=== PATIENT | male | born 1965 | race Caucasian/White ===

== ENCOUNTER → 2018-10-02 | Outpatient (CLI) | payer BC ==
--- NOTE | 2018-10-03 12:36 | XR ---
Left shoulder HISTORY: Trauma and pain 3 views of the left shoulder No comparisons Acromioclavicular joint arthropathy is present. Bone mineralization and alignment are maintained. Lef t lung apex as visualized is normal. IMPRESSION: No fracture or dislocation. Shoulder MRI may be of benefit.
== END ==
LOC: RADXRYALE 16:40
PROVIDERS: ATTEND Physician Assistant Medical
DX: S49.92XA Unspecified injury of left shoulder and upper arm, initial encounter (principal)

== ENCOUNTER → 2020-12-06 | Outpatient (CLI) | payer OTHER ==
--- NOTE | 2020-12-06 12:14 | XR ---
EXAMINATION TYPE: XR shoulder complete LT DATE OF EXAM: 12/06/2020 CLINICAL HISTORY: Patient slipped and fell at work today. Patient complains of pain to left shoulder and difficulty lifting arm TECHNIQUE: Three views of the left shoulder are obtained. COMPARISON: 10/02/2018 FINDINGS: There is no acute fracture/dislocation evident in the left shoulder. There is degenerative narrowing of the acromioclavicular joint with subchondral sclerosis. Visualized portions of the left lung appear clear. There is chronic narrowing of the acromiohumeral joint space which was also seen on a prior exam dated 2018. This may represent a rotator cuff tear. IMPRESSION: 1. No evidence of acute fracture or dislocation of the left shoulder. 2. Degenerative changes of left acromioclavicular joint. 3. Narrowing of the left acromiohumeral space may represent a chronic rotator cuff tear. Clinical cor relation is recommended. MRI could be obtained if clinically indicated. This was also seen on a prior exam dated 10/02/2018.
== END | disposition home or self-care (01) ==
LOC: RADXRMAIN 10:21
PROVIDERS: ATTEND Emergency Medicine
DX: S40.012A Contusion of left shoulder, initial encounter (principal); M19.012 Primary osteoarthritis, left shoulder; W01.0XXA Fall on same level from slipping, tripping and stumbling without subsequent striking against object, initial encounter; Y99.0 Civilian activity done for income or pay

== ENCOUNTER → 2021-01-16 | Outpatient (CLI) | payer OTHER ==
[2021-01-16 12:25] LABS: Basophils # (A) 0.1 k/uL (0-0.2); Basophils % (A) 1 %; Eosinophils # (A) 0.4 k/uL (0-0.7); Eosinophils % (A) 5 %; HCT 43.7 % (39.0-53.0); HGB 14.6 gm/dL (13.0-17.5); Lymphocytes % (A) 27 %; MCH 31.9 pg (25.0-35.0); MCHC 33.5 g/dL (31.0-37.0); MCV 95.2 fL (80.0-100.0); Mean Platelet Volume 6.2; Monocytes # (A) 0.4 k/uL (0-1.0); Monocytes % (A) 6 %; Neutrophils # (A) 4.3 k/uL (1.3-7.7); Neutrophils % (A) 59 %; Platelet Count 382 k/uL (150-450); RBC 4.59 m/uL (4.30-5.90); RDW 13.7 % (11.5-15.5); WBC 7.4 k/uL (3.8-10.6)
[2021-01-16 13:00] LABS: Potassium 4.5 mmol/L (3.5-5.1)
== END | disposition home or self-care (01) ==
LOC: LABPAT 11:30
PROVIDERS: ATTEND Orthopaedic Surgery
DX: Z01.812 Encounter for preprocedural laboratory examination (principal); Z01.810 Encounter for preprocedural cardiovascular examination; M75.42 Impingement syndrome of left shoulder
CPT/HCPCS: 36415; 80051; 85025; 93005

== ENCOUNTER 2021-01-25 05:56 | Day surgery (SDC) | payer BC, OTHER ==
[2021-01-23 08:42] VITALS: BMI 26.6
--- NOTE | 2021-01-24 21:14 | HP ---
HISTORY AND PHYSICAL REASON FOR ADMISSION: Surgery scheduled for 01/25/2021 HISTORY OF PRESENT ILLNESS: Anthony Deras is a 55-year-old gentleman seen with progressive left shoulder pain. We discussed options for treatment. He elected to proceed with arthroscopy. Consent was obtained. PAST MEDICAL HISTORY: Asthma. PAST SURGICAL HISTORY: Shoulder surgery, hip surgery. MEDICATIONS: Meloxicam, tramadol. ALLERGIES: None. SOCIAL HISTORY: Denies tobacco use. PHYSICAL EVALUATION OF THE LEFT SHOULDER: Flexion 60, abduction 50, external rotation 20 with significant weakness, tenderness along the anterolateral acromion rotator cuff insertion site. Impingement positive at 80. Drop-arm sign positive. Cross adduction sign is positive. Distal neurovascular exam is intact. RADIOGRAPHS: Radiographs of the left shoulder revealed a type 2 acromion, evidence for acromioclavicular joint osteoarthritis. MRI left shoulder revealed a rotator cuff tendon tear. IMPRESSION: 1. Left shoulder impingement with rotator cuff tear. 2. Left shoulder acromioclavicular joint osteoarthritis. PLAN: Left shoulder arthroscopy with subacromial decompression, arthroscopic rotator cuff repair, Lacie procedure and debridement. Surgery scheduled for 01/25/2021. MMODL / IJN: [id number] /
[~2021-01-25 05:56] MED LIST: DEXAMETHASONE SOD PHOSPHATE 4 MG/ML 1 ML VIAL IV ONE; LACTATED RINGERS 1,000 ML IV SCH; MIDAZOLAM 2 MG/2 ML VIAL IV PRN; ONDANSETRON 4 MG/2 ML VIAL IVP ONE; SCOPOLAMINE 1.5MG/72HR PATCH TRANSDERM ONE
[2021-01-25] MEDS ORDERED: LIDOCAINE 1% (10MG/ML) FOR IV START INTRADERMA ONE (06:30)
[2021-01-25 06:39] VITALS: RESP 16
[2021-01-25] MEDS ORDERED: PROPOFOL 10 MG/ML 20 ML VIAL IV ONE (07:26)
[2021-01-25] MEDS ORDERED: LIDOCAINE 1% INJ 10MG/ML (20 ML MDV) ONE (07:26)
[2021-01-25] MEDS ORDERED: ROPIVACAINE 5 MG/ML 30 ML VIAL ONE (07:26)
[2021-01-25] MEDS ORDERED: MIDAZOLAM 2 MG/2 ML VIAL ONE (07:26)
[2021-01-25] MEDS ORDERED: SUCCINYLCHOLINE CHLORIDE 100 MG/5 ML SYR IV ONE (07:26)
[2021-01-25] MEDS ORDERED: fentaNYL (PF) 50 MCG/ML 2 ML AMP ONE (07:26)
--- NOTE | 2021-01-25 08:21 | P.ANPRN ---
Procedure Note - Anesthesia - Nerve Block Performed Left Interscalene Single Time Out Performed: Yes ([id number]) Date of Procedure: 01/25/21 Procedure Start Time: 06:41 Procedure Stop Time: 06:46 Location of Patient: PreOp Indication: Acute Post-Operative Pain, Requested by Surgeon Specifically requested for management of pain by DrTianna: Dre Kennedy Sedation Type: Sedate with meaningful contact maintained Preparation: Sterile Prep Position: Supine Catheter: None Needle Types: Pajunk Needle Gauge: 21 Ultrasound used to visualize needle placement: Yes Ultrasound used to observe medication spread: Yes Injectate: 0.5% Ropivacaine (see comment for volume) (30cc) Blood Aspirated: No Pain Paresthesia on Injection Noted: No Resistance on Injection: Normal Image Stored and Saved: Yes Events: Uneventful and Well Tolerated
--- NOTE | 2021-01-25 09:42 | P.OP ---
Date of Procedure: 01/25/21 Preoperative Diagnosis: Left shoulder impingement Postoperative Diagnosis: 1. Left shoulder large retracted rotator cuff tendon tear 2. Left shoulder impingement 3. Left shoulder acromioclavicular joint osteoarthritis Procedure(s) Performed: 1. Left shoulder arthroscopic rotator cuff repair 2. Left shoulder arthroscopic subacromial decompression 3. Left shoulder arthroscopic Lacie procedure Implants: 4Arthrex 4.75 swivel lock anchors Anesthesia: GETA, regional (Interscalene block) Surgeon: Dre Kennedy Banquet Set Up Person #1: Gianfranco Bryan Estimated Blood Loss (ml): 7 Pathology: none sent Condition: stable Disposition: PACU Indications for Procedure: 55-year-old patient seen with aggressive left shoulder pain, after treatment options were discussed he elected to proceed with arthroscopy. Operative Findings: See description of procedure Description of Procedure: Patient underwent an interscalene block by department of anesthesia. The patient was then taken to the operative suite. The patient underwent a general anesthetic by the department of anesthesia. The patient was placed into a lateral position and secured. There was appropriate padding of the bony prominence. Left shoulder was then prepped and draped in normal sterile orthopedic fashion. We placed the extremity in 10 pounds of longitudinal traction. A posterior incision was now made for a posterior working portal site. The trocar and cannula were inserted into the glenohumeral joint. Arthroscopy was initiated. Spinal needle was now inserted anteriorly, to ascertain the anterior working portal site. An incision was now made in that area, a trocar was inserted followed by a probe. The biceps tendon was absent. There was some superficial fraying of the superior labrum. There was an obvious large rotator cuff tear clearly visualized from glenohumeral joint. I introduced a motorized shaver and debrided out the superficial labral tear. Residual labrum was stable. Instruments were now removed from subacromial space. Utilizing the posterior working portal site, the trocar and cannula were inserted into the subacromial space. Arthroscopy initiated. I made an incision 2 fingerbreadths lateral to the acromion. I introduced my trocar followed by my ArthroCare ablator. I now began ablating thick subacromial bursal tissue, which exposed the undersurface of the anterior acromion. There was diminished subacromial space. There was a very prominent anterior acromion. A motorized bur was introduced and a subacromial decompression was performed. I also excised some osteophytes off the inferior aspect of the distal clavicle. The AC joint was visualized and noted to be fairly arthritic. The motorized bur was introduced in the anterior portal site and a Lacie procedure was performed without difficulty, decompressing the AC joint nicely. I turned my attention to the rotator cuff. There was a 3.5 cm rotator cuff tear. It was retracted approximately 23 centimeters. I performed a substantial release proximally. I debrided the margins getting down to stable tendon tissue. I now could pull it over the footprint. I introduced my motorized bur and abraded the footprint area, getting some petechial bleeding. I now made an accessory portal site off the lateral aspect of the acromion. I punched 2 holes medial for medial row fixation with the assistance of Jose Elias RAMIREZ carefully tapping the punch with a mallet as I held the punch and the camera. I now introduced both anchors into the pre-punched holes and Jose Elias RAMIREZ tapped them with the mallet as I held anchors and the camera. Jose Elias RAMIREZ now screwed the anchors in place a while I held the anchor guide and camera. All 8 limbs of suture were now passed through good bites of rotator cuff tendon. I now punched 2 holes for lateral row fixation again I held the punch and camera while Jose Elias RAMIREZ used a mallet to tap in the punch. We now passed sutures through both anchors and individually I introduced the anchors into the pre-punch holes I held the anchor guide in position with one hand holding the camera with the other hand while Jose Elias RAMIREZ tensioned the sutures and screwed in the anchors one at a time. All residual suture limbs were now clipped. We had good compression of the tendon along the entire footprint. Instruments now removed from the portal sites. All portal sites were approximated with nylon suture. Sterile dressings were applied followed by a shoulder immobilizer. Gianfranco RAMIREZ assisted in this complex case. The patient was awakened, transferred to a bed, and taken to recovery in stable condition.
[2021-01-25 09:43] VITALS: TEMP 97.6
[2021-01-25] MEDS: HYDROmorphone 0.5 MG/0.5 ML SYRINGE IVP PRN ×3 (10:03→10:32)
[2021-01-25] MEDS ORDERED: LACTATED RINGERS 1,000 ML IV ONE (10:29)
[2021-01-25] MEDS ORDERED: HYDROcodone/APAP 7.5-325MG 1 EACH TAB ONE (11:13)
[2021-01-25] MEDS ORDERED: HYDROcodone/APAP 7.5-325MG 1 EACH TAB PO ONE (11:14)
[2021-01-25 11:36] VITALS: BP 102/68; PULSE 62
== END 2021-01-25 12:03 | disposition home or self-care (01) ==
LOC: OR 05:56
PROVIDERS: ATTEND Orthopaedic Surgery
DX: M75.102 Unspecified rotator cuff tear or rupture of left shoulder, not specified as traumatic (principal); M19.012 Primary osteoarthritis, left shoulder
CPT/HCPCS: 64415; 76942; 29827; 29826; C1894; J2250; J1100; J0690; J2405; J2001; J3010; J2795; J0330; J2704; J1170

== ENCOUNTER → 2021-08-17 | Outpatient (CLI) | payer OTHER ==
[2021-08-17 18:14] LABS: Basophils # (A) 0.04 X 10*3/uL (0.00-0.10); Basophils % (A) 0.5 %; Eosinophils % (A) 3.8 %; Immature Grans, Automated 0.4 %; Lymphocytes # (A) 1.78 X 10*3/uL (0.90-5.00); Lymphocytes % (A) 22.4 %; MCH 30.4 pg (27.0-32.0); MCHC 31.8 g/dL (32.0-37.0); MCV 95.7 fL (80.0-97.0); Mean Platelet Volume 8.8 fL (9.5-12.2); Monocytes # (A) 0.55 X 10*3/uL (0.20-1.00); Monocytes % (A) 6.9 %; NRBC Per 100 WBC 0 /100 WBCS (0.0-0.0); Neutrophils # (A) 5.24 X 10*3/uL (1.80-7.70); Platelet Count 311 X 10*3/uL (140-440); RDW 13.1 % (11.5-14.5); WBC 7.94 X 10*3/uL (4.50-10.00)
[2021-08-17 18:40] LABS: Anion Gap 11.7 mmol/L (10.00-18.00); Carbon Dioxide 24.3 mmol/L (20.0-27.5); Potassium 4.7 mmol/L (3.5-5.5)
== END | disposition home or self-care (01) ==
LOC: LABPAT 11:11
PROVIDERS: ATTEND Orthopaedic Surgery
DX: Z01.812 Encounter for preprocedural laboratory examination (principal); S46.011A Strain of muscle(s) and tendon(s) of the rotator cuff of right shoulder, initial encounter; X58.XXXA Exposure to other specified factors, initial encounter
CPT/HCPCS: 80051; 85025

== ENCOUNTER 2021-08-20 08:22 | Day surgery (SDC) | payer OTHER ==
[2021-08-17 08:54] VITALS: BMI 25.8
--- NOTE | 2021-08-19 13:21 | HP ---
HISTORY AND PHYSICAL REASON FOR ADMISSION: Surgery 08/20/2021 HISTORY OF PRESENT ILLNESS: Anthony Deras is a 55-year-old gentleman seen with progressive left shoulder pain. We discussed options for treatment. He elected to proceed with left shoulder arthroscopy. Consent obtained. PAST MEDICAL HISTORY: Asthma. PAST SURGICAL HISTORY: Shoulder arthroscopy, hip arthroscopy. MEDICATIONS: Meloxicam, ibuprofen. ALLERGIES: None. SOCIAL HISTORY: He denies tobacco use. PHYSICAL EVALUATION OF THE LEFT SHOULDER: Flexion is 110, abduction is 100, external rotation 20 with significant weakness, tenderness along the anterior lateral acromion and rotator cuff insertion site. Impingement positive at 90 degrees. Drop-arm sign is positive. Distal neurovascular exam is intact. RADIOGRAPHS: Radiographs of the left shoulder revealed a large rotator cuff tendon tear. IMPRESSION: 1. Left shoulder rotator cuff tear. 2. History of previous left shoulder arthroscopy with rotator cuff repair. PLAN: Left shoulder arthroscopy with rotator cuff repair and debridement. Surgery scheduled for 08/20/2021. MMODL / IJN: [id number] /
[~2021-08-20 08:22] MED LIST changes: +HYDROmorphone 0.5 MG/0.5 ML SYRINGE IVP PRN; +LIDOCAINE 1% (10MG/ML) FOR IV START INTRADERMA PRN; -MIDAZOLAM 2 MG/2 ML VIAL IV PRN
[2021-08-20] MEDS ORDERED: MIDAZOLAM 2 MG/2 ML VIAL IV ONE (09:14)
[2021-08-20] MEDS ORDERED: PROPOFOL 10 MG/ML 20 ML VIAL IV ONE (09:58)
[2021-08-20] MEDS ORDERED: ROPIVACAINE 5 MG/ML 30 ML VIAL ONE (09:58)
[2021-08-20] MEDS ORDERED: SUCCINYLCHOLINE CHLORIDE 100 MG/5 ML SYR IV ONE (09:58)
[2021-08-20] MEDS ORDERED: LIDOCAINE 1% INJ 10MG/ML (20 ML MDV) ONE (09:58)
[2021-08-20] MEDS ORDERED: fentaNYL (PF) 50 MCG/ML 2 ML AMP ONE (09:58)
[2021-08-20] MEDS ORDERED: LACTATED RINGERS 1,000 ML IV ONE (11:50)
[2021-08-20 12:23] VITALS: RESP 16; TEMP 97
--- NOTE | 2021-08-20 12:29 | P.OP ---
Date of Procedure: 08/20/21 Preoperative Diagnosis: Left shoulder rotator cuff tear Postoperative Diagnosis: Left shoulder massive retracted recurrent rotator cuff tear Procedure(s) Performed: Left shoulder arthroscopic rotator cuff repair Implants: 25.5 Arthrex swivel lock anchors 24.75 Arthrex a lock anchors Anesthesia: GETA, regional (Interscalene block) Surgeon: Dre Kennedy Clinical Appeals Auditor #1: Gianfranco Bryan Estimated Blood Loss (ml): 9 Pathology: none sent Condition: stable Disposition: PACU Indications for Procedure: 55-year-old gentleman seen with a recurrent left shoulder rotator cuff tear with history of previous arthroscopic rotator cuff repair. We discussed this complex issue. I reviewed arthroscopy with revision rotator cuff repair. I discussed the procedure, risks, complications and recovery. Patient was agreeable. Consent was obtained. Operative Findings: see description of procedure Description of Procedure: Patient underwent an interscalene block by department of anesthesia. The patient was then taken to the operative suite. The patient underwent a general anesthetic by the department of anesthesia. The patient was placed into a lateral position and secured. There was appropriate padding of the bony prominence. Left shoulder was then prepped and draped in normal sterile orthopedic fashion. We placed the extremity in 10 pounds of longitudinal tracti on. A posterior incision was now made for a posterior working portal site. The trocar and cannula were inserted into the glenohumeral joint. Arthroscopy was initiated. Spinal needle was now inserted anteriorly, to ascertain the anterior working portal site. An incision was now made in that area, a trocar was inserted followed by a probe. The biceps tendon was absent. There were grade 2 chondromalacia changes about the glenohumeral joint with no tears. The labrum was probed and was found to be stable. There was an obvious large recurrent rotator cuff tear with residual suture material evident. At this point instruments removed from glenohumeral joint. Utilizing the posterior working portal site, the trocar and cannula were inserted into the subacromial space. Arthroscopy initiated. I made an incision 2 fingerbreadths lateral to the acromion. I introduced my trocar followed by my ArthroCare ablator. I now began ablating thick subacromial bursal tissue, which exposed the undersurface of the anterior acromion. There was a massive retracted rotator cuff tear evident with residual suture material. At this point I debrided out the residual suture material with a motorized bur. I noted a previous good decompression. The before meals joint was stable. The tear was through the substance of the anterior fibers of the supraspinatus distally. I debrided the tissue getting down to stable tissue. The tear was significant measuring over 4.5 cm and we noted at this point I created an pier hand portal site off the lateral acromion. I now was able to retrieve and remove the medial anchors. I now abraded the footprint with a motorized bur. I now passed 4 converging sutureS centrally to try to approximate the central portion of the tendon to get some coverage anteriorly. I performed this one time with this is a Jose Elias RAMIREZ was able to converge the tendon nicely providing some coverage. I now introduced 1 medial row anchor anteriorly utilizing a 5.5 Arthrex a lock anchor with 4 suture tapes with assistance of Jose Elias RAMIREZ. I shuttled all suture tapes through the anterior portal site. I now introduced a 5.5 Arthrex a lock anchor posteriorly again with 4 suture tapes with assistance of Jose Elias RAMIREZ. We now had good medial row anchors with good fixation. With the assistance of Jose Elias RAMIREZ we shuttled sutures one at a time through good bites of rotator cuff tendon making our way from anterior to posterior. I passed a everted mattress suture utilizing suture tape posteriorly. It appeared to pull the tendon just over the footprint at this point. I tried to retrieve the lateral anchors by was unable to do so. I now punched hole anterior laterally for insertion of an anchor. I passed 4 limbs of suture through the eyelet of a 4.75 swivel lock anchor. I placed the eyelet into the pre-punch hole. I held the eyelet in position while Jose Elias RAMIREZ tension the sutures and the micheline the anchor with good fixation noted. I now passed my residual sutures through the superior portal site. I now passed all 6 limbs of suture through the eye of a 4.75 Arthrex swivel lock anchor. I placed the eyelet into the pre-punch hole. I held it in position while Jose Elias RAMIREZ tension all 6 suture limbs and then deployed the anchor with good fixation noted. All residual suture limbs were now clipped. We had reasonable compression along the footprint posteriorly and just along the edge anteriorly. It was probed and found to be stable. Instruments now removed from the portal sites. All portal sites were approximated with nylon suture. Sterile dressings were applied followed by a shoulder immobilizer. Gianfranco RAMIREZ assisted in this complex case. The patient was awakened, transferred to a bed, and taken to recovery in stable condition. The patient's prognosis is guarded given revision surgery on a massive retracted tear.
[2021-08-20 13:56] VITALS: BP 117/67; PULSE 65
--- NOTE | 2021-08-20 17:16 | P.ANPRN ---
Procedure Note - Anesthesia - Nerve Block Performed Left Interscalene Single Time Out Performed: Yes Date of Procedure: 08/20/21 Procedure Start Time: : Procedure Stop Time: :13 Location of Patient: PreOp Indication: Acute Post-Operative Pain, Dx/Pain Location, Requested by Surgeon Specifically requested for management of pain by : Dre Kennedy Sedation Type: Sedate with meaningful contact maintained Preparation: Sterile Prep Position: Supine Catheter: None Needle Types: Facet Needle Gauge: 21 Ultrasound used to visualize needle placement: Yes Ultrasound used to observe medication spread: Yes Injectate: 0.5% Ropivacaine (see comment for volume) Blood Aspirated: No Pain Paresthesia on Injection Noted: No Resistance on Injection: Normal Image Stored and Saved: Yes Events: Uneventful and Well Tolerated (30cc 0.5% ropivacaine)
== END 2021-08-20 14:06 | disposition home or self-care (01) ==
LOC: OR 08:22
PROVIDERS: ATTEND Orthopaedic Surgery
DX: M75.102 Unspecified rotator cuff tear or rupture of left shoulder, not specified as traumatic (principal); M94.212 Chondromalacia, left shoulder; J45.909 Unspecified asthma, uncomplicated; Z79.1 Long term (current) use of non-steroidal anti-inflammatories (NSAID); Z98.890 Other specified postprocedural states; M19.90 Unspecified osteoarthritis, unspecified site; Z79.891 Long term (current) use of opiate analgesic
CPT/HCPCS: 29826; 29827; 64415; 76942; C1894; C1713; J2250; J1100; J0690; J2405; J2001; J3010; J2795; J0330; J2704

== ENCOUNTER → 2023-05-21 | Outpatient (CLI) | payer OTHER ==
--- NOTE | 2023-05-21 16:44 | XR ---
EXAMINATION TYPE: XR lumbosacral spine min 4V DATE OF EXAM: 05/21/2023 COMPARISON: None HISTORY: Back pain degenerative disc disease TECHNIQUE: 5 view lumbar spine FINDINGS: Facet degenerative changes present. No spondylolytic defects are evident. There are 5 lumbar-type vertebral bodies. The pedicles are intact. Vertebral body alignment is preserved. Disc space narrowing is present posteriorly L3-4 through L5-S1 . There is diffuse loss of disc height through the L2-3 level. Milder narrowing of the L1-2 and T12-L 1 disc spaces are present. IMPRESSION: 1. Degenerative disc changes throughout the lumbar spine discussed above
== END | disposition home or self-care (01) ==
LOC: RADXRYALE 15:44
PROVIDERS: ATTEND Physician Assistant Medical
DX: M51.36 Other intervertebral disc degeneration, lumbar region (principal)
CPT/HCPCS: 72110

== ENCOUNTER → 2023-12-04 | Outpatient (CLI) | payer OTHER ==
--- NOTE | 2023-12-04 12:58 | MR ---
EXAMINATION TYPE: MR lumbar spine wo con DATE OF EXAM: 12/04/2023 11:26 AM CLINICAL INDICATION:Male, 58 years old with history of disc degeneration; PHH, Low back pain COMPARISON: None TECHNIQUE: Multi planar, multi sequence imaging was performed utilizing: T1-weighted, T2-weighted, a nd turbo inversion recovery imaging of the lumbar spine. IV Contrast: cc . (None if empty) FINDINGS: Alignment: The lumbar vertebral bodies have preserved heights and alignment. Cord: The conus medullaris and the distal spinal cord appear unremarkable with regards to their signa l intensity and morphology. Bones/Discs: Mild degeneration changes throughout the spine with osteophyte formation and facet joint arthropathy. Intervertebral disc signal is maintained. Reactive bony edema within the bilateral pedi cles of L5. Reactive edema along the L2-L3 adjoining endplates. T12-L1: No evidence of significant spinal canal stenosis or neural foraminal stenosis. L1-L2: No evidence of significant spinal canal stenosis or neural foraminal stenosis. L2-L3: Disc bulge and facet joint arthropathy result in mild spinal canal and moderate bilateral neur al foraminal stenosis. L3-L4: Disc bulge and facet joint arthropathy result in mild spinal canal and moderate to severe left and moderate right neural foraminal stenosis. L4-L5: Disc bulge and facet joint arthropathy result in mild spinal canal and moderate bilateral neur al foraminal stenosis. L5-S1: The disc has a rounded posterior morphology without significant spinal canal stenosis. Facet j oint arthropathy with mild bilateral mild right and moderate left neural foraminal stenosis. No significant spinal canal or neural foraminal stenosis in the remainder of the visualized levels. Other findings: None. IMPRESSION: * No definitive evidence of disc herniation or significant spinal canal stenosis. * Breast Reactive edema within the bilateral pedicles of L5. * Mild disc degeneration with associated osteoarthritic changes, neural foraminal stenosis worse at L4-L5 with moderate bilateral, L3-L4 with moderate to severe left neural foraminal stenosis.
== END | disposition home or self-care (01) ==
LOC: RADMRIMAIN 10:17
PROVIDERS: ATTEND Family Medicine
DX: M51.36 Other intervertebral disc degeneration, lumbar region (principal); M99.73 Connective tissue and disc stenosis of intervertebral foramina of lumbar region
CPT/HCPCS: 72148